=== PATIENT | female | born 1940 | race Caucasian/White ===

== ENCOUNTER → 2020-05-28 | Outpatient (CLI) | payer OTHER ==
[~2020-05-28] MED LIST: ASPI81CH; ASPI81CH PO; ATEN25 PO; ATOR20 PO; Alph-E-Mixed400 UNIT; BETA.05TC; CALCAVITD; CALCAVITD PO; CHOL10002; CHOL10002 PO; DAILY MULTIPLE1 EACH; ENAL20; ENAL20 PO; Ester-C 500 MG1 EACH; FISH1000 PO; GABA300 PO; GABA800 PO; HYDACE5 PO; HYDCHL12.5 PO; METO10; NITR.4SL SL; OMEP10ER PO; OMEP20ER PO; OXYB5 PO
== END | disposition home or self-care (01) ==
LOC: LAB SHORT 15:35 → LAB 15:35
DX: R35.0 Frequency of micturition (principal)
CPT/HCPCS: 87086

== ENCOUNTER → 2023-09-06 | Outpatient (CLI) | payer OTHER ==
[2023-09-06 19:03] LABS: Source, Urine Clean Catch
[2023-09-06 19:20] LABS: Bacteria Few /hpf; Red Blood Cells, Urine 0-2 /hpf (0-2)
[2023-09-06 19:21] LABS: Squamous Epithelial Cells Rare /hpf (Few); Transitional Epithelial Cells Few /hpf (0-Rare)
== END | disposition home or self-care (01) ==
LOC: LAB SHORT 16:01 → LAB 16:01
PROVIDERS: Family Medicine
DX: R82.90 Unspecified abnormal findings in urine (principal)
CPT/HCPCS: 81015

== ENCOUNTER → 2023-09-08 | Outpatient (CLI) | payer OTHER | LOC: LAB 14:45 → LAB SHORT 14:45 | DX: N39.0 Urinary tract infection, site not specified (principal) | CPT/HCPCS: 87086 ==

== ENCOUNTER → 2025-04-09 | Outpatient (CLI) | payer OTHER ==
[2025-04-10 12:58] LABS: Creatinine, Urine Random 62.4 mg/dL (27.00-270.00); Microalb/Creat Ratio UR, Rand 8.686 mg/g (0.000-30.000); Microalbumin, Random Urine 5.42 mg/L (0.000-20.000)
== END ==
LOC: LAB 15:33 → LAB SHORT 15:33
PROVIDERS: Family Medicine
DX: E11.51 Type 2 diabetes mellitus with diabetic peripheral angiopathy without gangrene (principal); E11.22 Type 2 diabetes mellitus with diabetic chronic kidney disease; E11.59 Type 2 diabetes mellitus with other circulatory complications; E11.620 Type 2 diabetes mellitus with diabetic dermatitis; E11.69 Type 2 diabetes mellitus with other specified complication
CPT/HCPCS: 82043; 82570